=== PATIENT | male | born 1950 | race Caucasian/White ===

== ENCOUNTER 2022-04-30 07:19 | Emergency (ER) | payer OTHER ==
[~2022-04-30] VITALS: Ht 177.8 cm; Wt 70.3 kg
[2022-04-30] MEDS ORDERED: IV NS 0.9% 500 ML BAG IV ONE (07:30)
--- NOTE | 2022-04-30 07:38 | NUR ---
BIBS FOR C/O DIZZINESS, NAUSEA AND TINGLING SENSATION ON BUE. THE PATIENT IS ALERT AND ORIENTED X3. IN ROOM AIR AND DENIES SOB. RESPIRATION REGULAR AND UNLABORED. WILL CONTINUE TO MONITOR THE PATIENT.
--- NOTE | 2022-04-30 07:41 | NUR ---
LAB AT BEDSIDE
[2022-04-30 08:05] LABS: BASOPHILS % (AUTO) 0.7 % (0.0-2.0); EOSINOPHILS % (AUTO) 1.7 % (0.0-6.0); HEMATOCRIT 43 % (39-51); HEMOGLOBIN 14.8 g/dL (13.5-17.5); LYMPHOCYTES # (AUTO) 1.2 K/uL (0.8-4.8); LYMPHOCYTES % (AUTO) 44.6 % (20.0-44.0); MEAN CORPUSCULAR HGB CONC 35 g/dl (31.0-36.0); MEAN CORPUSCULAR VOLUME 99 fL (80-96); MONOCYTES # (AUTO) 0.3 K/uL (0.1-1.30); MONOCYTES % (AUTO) 13.3 % (2.0-12.0); NEUTROPHILS % (AUTO) 39.7 % (43.0-81.0); PLATELET COUNT (AUTO) 149 K/uL (150-450); RED BLOOD CELL COUNT(AUTO) 4.33 MIL/uL (4.5-6.0); WHITE BLOOD COUNT (AUTO) 2.6 K/uL (4.3-11.0)
--- NOTE | 2022-04-30 08:17 | NUR ---
TAKEN TO CT VIA [facility]
[2022-04-30 08:18] LABS: ALANINE AMINOTRANSFERASE 23 U/L (12-78); ALKALINE PHOSPHATASE 94 U/L (46-116); ASPARTATE AMINOTRANSFERASE 20 U/L (15-37); BILIRUBIN,DIRECT 0.2 mg/dL (0.0-0.2); BILIRUBIN,TOTAL 0.9 mg/dL (0.2-1.0); CALCIUM, SERUM 8.8 mg/dL (8.5-10.1); CARBON DIOXIDE 29 mmol/L (21-32); CHLORIDE 104 mmol/L (98-107); CREATININE 0.9 mg/dL (0.6-1.3); GLUCOSE 97 mg/dL (74-106); POTASSIUM 3.6 mmol/L (3.5-5.1); SODIUM SERUM 141 mmol/L (136-145); UREA NITROGEN, BLOOD 23 mg/dL (7-18)
--- NOTE | 2022-04-30 08:18 | NUR ---
THE PATIENT IS TAKEN TO CT VIA GURNEY.
--- NOTE | 2022-04-30 08:39 | NUR ---
THE PATIENT IS BACK FROM CT VIA [facility]
--- NOTE | 2022-04-30 09:16 | NUR ---
COVID SWAB DONE AND SENT TO LAB
--- NOTE | 2022-04-30 09:28 | NUR ---
URINE COLLECTED AND SENT TO LAB
--- NOTE | 2022-04-30 09:32 | NUR ---
NEW ORDER FROM DR ESPINO: NORMAL SALINE 1000 ML IV WIDE OPEN ONCE. THE ORDER IS READ BACK, VERIFIED. NOTED AND CARRIED OUT.
[2022-04-30 09:48] LABS: BILIRUBIN,URINE NEGATIVE (NEGATIVE); COLOR,URINE YELLOW (YELLOW); LEUKOCYTE ESTERASE ,URINE NEGATIVE (NEGATIVE); NITRITE, URINE NEGATIVE (NEGATIVE); PROTEIN,URINE NEGATIVE (NEGATIVE); UGLUCOSE NEGATIVE (NEGATIVE)
[2022-04-30] MEDS ORDERED: IV NS 0.9% 1,000 ML IV ONE (10:00)
--- NOTE | 2022-04-30 10:02 | NUR ---
CALLED RADIOLOGY RE US ORDERED
--- NOTE | 2022-04-30 10:05 | NUR ---
US TECH AT BEDSIDE FOR ULTRASOUND
[2022-04-30 10:24] LABS: RBC,URINE 0-2 /HPF (0-2); WBC,URINE 0-2 /HPF (0-3)
[2022-04-30 10:25] LABS: BACTERIA,URINE Rare /HPF (None Seen)
[2022-04-30 10:31] LABS: URINE AMORPHOUS PHOSPHATES Few /HPF (None Seen)
[2022-04-30 10:32] LABS: SQUAMOUS EPITHELIAL CELL,UR Few /HPF (None Seen)
[2022-04-30 10:34] LABS: CALCIUM PHOSPHATE CRYSTALS,UR Rare /HPF (None Seen)
[2022-04-30 10:48] LABS: EOSINOPHILS % (MANUAL) 2 % (0-4); LYMPHOCYTES % (MANUAL) 47 % (16-48); MONOCYTES % (MANUAL) 5 % (0-11.0); NEUTROPHILS % (MANUAL) 46 (42-76)
[2022-04-30] MEDS ORDERED: CHLO25CA22 PO (10:52)
--- NOTE | 2022-04-30 11:19 | NUR ---
IV removed. Catheter intact and site benign. Pressure and 4x4 applied to site. No bleeding noted.Patient discharged to home in stable condition. Written and verbal after care instructions given. Patient verbalizes understanding of instruction.
[2022-04-30 11:20] VITALS: BP 146/95
== END 2022-04-30 11:21 | disposition home or self-care (01) ==
LOC: ER 08:05
DX: F10.10 Alcohol abuse, uncomplicated (principal); B34.9 Viral infection, unspecified; E86.0 Dehydration; Z20.822 Contact with and (suspected) exposure to COVID-19; N20.0 Calculus of kidney; E78.5 Hyperlipidemia, unspecified; I10 Essential (primary) hypertension
CPT/HCPCS: 36415; 70450; 71045; 76700; 80048; 80076; 81001; 83690; 83735; 84484; 85007; 85025; 85730; 87426; 93005; 96360; 99285; J7030; J7040; C9803

== ENCOUNTER 2022-12-26 09:29 | Emergency (ER) | payer OTHER ==
[~2022-12-26] VITALS: Ht 177.8 cm; Wt 70.3 kg
[~2022-12-26 09:29] MED LIST: CHLO25CA22 PO
--- NOTE | 2022-12-26 09:37 | NUR ---
CALLED FOR TRIAGE NO RESPONSE
--- NOTE | 2022-12-26 09:55 | NUR ---
BIBS C/O COUGH, CONGESTION, AND RUNNY NOSE. PT WAS DIAGNOSED WITH COVID ON 12/21. PT AMBULATED TO BED WITH STEADY GAIT. VSS. AWAITING MD ORDERS.
--- NOTE | 2022-12-26 09:59 | NUR ---
DR. SMITH AT BEDSIDE.
--- NOTE | 2022-12-26 10:22 | NUR ---
ESTABLISHED IV ACCESS 20G LEFT FOREARM. BLOOD DRAWN AND SENT TO LAB.
[2022-12-26] MEDS ORDERED: ALBUTEROL FS 2.5 MG/3 ML VIAL.NEB ONE (10:28)
--- NOTE | 2022-12-26 10:28 | NUR ---
RT AT BEDSIDE FOR BREATHING TREATMENT.
[2022-12-26] MEDS ORDERED: ALBUTEROL FS 2.5 MG/0.5 ML VIAL.NEB ONE (10:29)
[2022-12-26] MEDS ORDERED: LIDOCAINE SOLN 4% 50 ML BOTTLE TP ONE (10:30)
[2022-12-26] MEDS ORDERED: ALBUTEROL FS 2.5 MG/0.5 ML VIAL.NEB NEB ONE (10:30)
[2022-12-26 10:33] LABS: BASOPHILS % (AUTO) 0.7 % (0.0-2.0); EOSINOPHILS % (AUTO) 1.2 % (0.0-6.0); HEMATOCRIT 44 % (39-51); HEMOGLOBIN 14.5 g/dL (13.5-17.5); LYMPHOCYTES # (AUTO) 1.2 K/uL (0.8-4.8); MEAN CORPUSCULAR HGB CONC 33 g/dl (31.0-36.0); MEAN CORPUSCULAR VOLUME 100 fL (80-96); MONOCYTES # (AUTO) 0.6 K/uL (0.1-1.30); NEUTROPHILS # (AUTO) 2.3 K/uL (1.8-8.9); NEUTROPHILS % (AUTO) 56.1 % (43.0-81.0); PLATELET COUNT (AUTO) 198 K/uL (150-450); RED BLOOD CELL COUNT(AUTO) 4.37 MIL/uL (4.5-6.0); WHITE BLOOD COUNT (AUTO) 4.1 K/uL (4.3-11.0)
[2022-12-26] MEDS ORDERED: LIDOCAINE 4% PF AMPUL 40 MG/ML AMPUL ONE (11:08)
[2022-12-26 11:59] LABS: CALCIUM, SERUM 8.3 mg/dL (8.5-10.1); CARBON DIOXIDE 30 mmol/L (21-32); CHLORIDE 103 mmol/L (98-107); GLUCOSE 90 mg/dL (74-106); POTASSIUM 4.2 mmol/L (3.5-5.1); SODIUM SERUM 138 mmol/L (136-145); UREA NITROGEN, BLOOD 21 mg/dL (7-18)
[2022-12-26] MEDS ORDERED: GUAI100S69 PO (13:09)
[2022-12-26] MEDS ORDERED: BENZ-13 PO (13:09)
--- NOTE | 2022-12-26 13:49 | NUR ---
Patient discharged to home in stable condition. Written and verbal after care instructions given. Patient verbalizes understanding of instruction.IV removed. Catheter intact and site benign. Pressure and 4x4 applied to site. No bleeding noted.
[2022-12-26 13:56] VITALS: BP 138/82
== END 2022-12-26 13:57 | disposition home or self-care (01) ==
LOC: EDBD 09:33 → ER 09:33
DX: J98.01 Acute bronchospasm (principal); E86.0 Dehydration; B34.9 Viral infection, unspecified; I10 Essential (primary) hypertension; E78.5 Hyperlipidemia, unspecified; F17.200 Nicotine dependence, unspecified, uncomplicated; Z60.2 Problems related to living alone; Z20.822 Contact with and (suspected) exposure to COVID-19; Z79.899 Other long term (current) drug therapy; Z88.5 Allergy status to narcotic agent
CPT/HCPCS: 99285; 71045; 93005; 85025; 80048; 36415; 84484; 83880; 94640 ×2; J3490; C9803; U0003

== ENCOUNTER 2023-04-09 16:11 | Emergency (ER) | payer OTHER ==
[~2023-04-09] VITALS: Ht 177.8 cm; Wt 72.6 kg
[~2023-04-09 16:11] MED LIST changes: +BENZ-13 PO; +GUAI100S69 PO
--- NOTE | 2023-04-09 17:20 | NUR ---
THE PATIENT IS PRESENTED TO ER FOR LOWER BACK PAIN X 1 WEEK AFTER "LIFTING SOMETHING HEAVY". RATES PAIN 05/28. WILL CONTINUE TO MONITOR THE PATIENT.
[2023-04-09] MEDS ORDERED: CARI350T PO (18:48)
[2023-04-09] MEDS ORDERED: LIDO1ADH71 TOP (18:48)
[2023-04-09 18:58] VITALS: BP 145/76
--- NOTE | 2023-04-09 18:58 | NUR ---
Patient discharged to home in stable condition. Written and verbal after care instructions given. Patient verbalizes understanding of instruction.
== END 2023-04-09 18:58 | disposition home or self-care (01) ==
LOC: ER 16:16
DX: M54.50 Low back pain, unspecified (principal); I10 Essential (primary) hypertension; E78.5 Hyperlipidemia, unspecified; F17.200 Nicotine dependence, unspecified, uncomplicated; Z88.8 Allergy status to other drugs, medicaments and biological substances; Z60.2 Problems related to living alone
CPT/HCPCS: 72131-TC